=== PATIENT | male | born 1965 | race Caucasian/White ===

== ENCOUNTER 2021-10-11 17:30 | Inpatient (IN) | payer OTHER ==
[2021-10-11 17:43] VITALS: BMI 24.0
[2021-10-11] MEDS ORDERED: LORazepam 2 MG/ML SDV VIAL IVPUSH ONE ×2 (18:53→20:30)
[2021-10-11] MEDS ORDERED: THIAMINE HCL 200 MG/2 ML VIAL IVPB ONE (18:59)
[2021-10-11] MEDS ORDERED: HALOPERIDOL LACTATE 5 MG/ML IV ONE (19:19)
[2021-10-11] MEDS ORDERED: HALOPERIDOL LACTATE 5 MG/ML ONE (19:21)
[2021-10-11 19:25] LABS: BASO % 0.6 % (0-2.0); EOS % 1.6 % (0-4.5); HEMATOCRIT 49.1 % (35.4-49); HEMOGLOBIN 16.4 GM/dL (11.7-16.9); LYMPH % 20.7 % (8-40); MCH 29.8 pg (25.7-33.7); MCHC 33.5 g/dl (32.0-35.9); MEAN CELL VOLUME 89.1 fl (80-96); MEAN PLT VOLUME 8.7 fl (7.5-11.1); MONO % 19.4 % (3.8-10.2); NEUT % 57.7 % (42.8-82.8); PLATELET COUNT 130 10^3/uL (134-434); RBC 5.51 M/mm3 (4.00-5.60); RDW 13.2 % (11.9-15.9); WHITE BLOOD COUNT 6.6 K/mm3 (4.0-10.0)
[2021-10-11 19:45] LABS: CHLORIDE 102 mmol/L (98-107); SODIUM 138 mmol/L (136-145)
[2021-10-11 19:47] LABS: ALBUMIN 4.3 g/dl (3.4-5.0); ANION GAP 9 MMOL/L (8-16); BLOOD UREA NITROGEN 7.3 mg/dL (7-18); CALCIUM 9.8 mg/dL (8.5-10.1); CO2 27 mmol/L (21-32); GLUCOSE,RANDOM 105 mg/dL (74-106); MAGNESIUM 2.2 mg/dL (1.8-2.4)
[2021-10-11 19:50] LABS: CREATININE 0.8 mg/dL (0.55-1.3); SGPT/ALT 73 U/L (13-61)
[2021-10-11 19:52] LABS: BILIRUBIN,TOTAL 1.3 mg/dL (0.2-1)
[2021-10-11 19:53] LABS: ALK PHOS 63 U/L (45-117)
[2021-10-11] MEDS ORDERED: THIAMINE HCL 200 MG/2 ML VIAL ONE (21:40)
[2021-10-12] MEDS ORDERED: LORazepam 2 MG/ML SDV VIAL IVPUSH PRN (00:15)
[2021-10-12 07:20] LABS: EOS % 2.3 % (0-4.5); HEMOGLOBIN 15.7 GM/dL (11.7-16.9); LYMPH % 17.9 % (8-40); MCH 29.9 pg (25.7-33.7); MCHC 33.3 g/dl (32.0-35.9); MEAN CELL VOLUME 89.7 fl (80-96); MEAN PLT VOLUME 8.6 fl (7.5-11.1); NEUT % 58.8 % (42.8-82.8); PLATELET COUNT 114 10^3/uL (134-434); RBC 5.24 M/mm3 (4.00-5.60); RDW 13.4 % (11.9-15.9); WHITE BLOOD COUNT 4.7 K/mm3 (4.0-10.0)
[2021-10-12 07:30] LABS: INR 1.04 (0.83-1.09)
[2021-10-12 07:48] LABS: BLOOD UREA NITROGEN 7.6 mg/dL (7-18)
[2021-10-12 07:49] LABS: BILIRUBIN,TOTAL 1.2 mg/dL (0.2-1); TOT PROT 7.3 g/dl (6.4-8.2)
[2021-10-12 07:51] LABS: CALCIUM 9.6 mg/dL (8.5-10.1); PHOSPHOROUS 3.6 mg/dL (2.5-4.9)
[2021-10-12 07:52] LABS: CREATININE 0.7 mg/dL (0.55-1.3); MAGNESIUM 2.1 mg/dL (1.8-2.4)
[2021-10-12] MEDS ORDERED: THIAMINE HCL 200 MG/2 ML VIAL IVPB SCH (10:00)
[2021-10-12] MEDS ORDERED: LORazepam 1 MG TABLET PO PRN (10:48)
[2021-10-12] MEDS ORDERED: LORazepam 1 MG TABLET PO SCH (11:00)
[2021-10-12] MEDS ORDERED: LORazepam 2 MG TABLET PO SCH (11:00)
[2021-10-12 11:24] LABS: SGOT/AST 42 U/L (15-37)
[2021-10-12] MEDS ORDERED: FOLIC ACID 1 MG TABLET (FP) ONE (11:34)
[2021-10-12] MEDS ORDERED: LORazepam 1 MG TABLET ONE (11:35)
[2021-10-12] MEDS ORDERED: MULTIVITAMINS (DAILY MVI) TABLET (FP) ONE (11:35)
[2021-10-12] MEDS ORDERED: ENOXAPARIN NA (PORCINE) 40 MG/0.4 ML DISP.SYRIN SQ ONE (11:36)
[2021-10-12] MEDS: THIAMINE HCL 200 MG/2 ML VIAL IVPB SCH ×3 (11:40→21:37)
[2021-10-12] MEDS: FOLIC ACID 1 MG TABLET (FP) PO SCH (11:40)
[2021-10-12] MEDS: ENOXAPARIN NA (PORCINE) 40 MG/0.4 ML DISP.SYRIN SQ SCH (11:40)
[2021-10-12] MEDS: MULTIVITAMINS (DAILY MVI) TABLET (FP) PO SCH (11:41)
[2021-10-12] MEDS ORDERED: LORazepam 2 MG/ML SDV VIAL IVPUSH ONE (13:15)
[2021-10-12] MEDS ORDERED: diazePAM CARPU-JECT 10 MG/2 ML DISP.SYRIN IVPUSH ONE (15:00)
[2021-10-12] MEDS ORDERED: diazePAM CARPU-JECT 10 MG/2 ML DISP.SYRIN ONE (15:05)
[2021-10-12] MEDS: LORazepam 2 MG/ML SDV VIAL IVPUSH SCH ×2 (17:00→23:47)
[2021-10-12] MEDS: LORazepam 2 MG/ML SDV VIAL IVPUSH PRN (18:16)
[2021-10-12] MEDS: LACTULOSE 20 GM/30 ML UDC (FOR ORAL USE ONLY) PO SCH (21:38)
[2021-10-13] MEDS: THIAMINE HCL 200 MG/2 ML VIAL IVPB SCH ×3 (05:45→22:26)
[2021-10-13] MEDS: LACTULOSE 20 GM/30 ML UDC (FOR ORAL USE ONLY) PO SCH ×4 (05:45→22:26)
[2021-10-13] MEDS: LORazepam 2 MG/ML SDV VIAL IVPUSH SCH ×4 (05:45→22:55)
[2021-10-13] MEDS: ENOXAPARIN NA (PORCINE) 40 MG/0.4 ML DISP.SYRIN SQ SCH (09:54)
[2021-10-13] MEDS: FOLIC ACID 1 MG TABLET (FP) PO SCH (09:54)
[2021-10-13] MEDS: MULTIVITAMINS (DAILY MVI) TABLET (FP) PO SCH (09:54)
[2021-10-13 10:15] LABS: HEMATOCRIT 49.6 % (35.4-49); HEMOGLOBIN 16.7 GM/dL (11.7-16.9); MCH 30.5 pg (25.7-33.7); MCHC 33.8 g/dl (32.0-35.9); MEAN CELL VOLUME 90.5 fl (80-96); MEAN PLT VOLUME 8.5 fl (7.5-11.1); PLATELET COUNT 132 10^3/uL (134-434); RBC 5.48 M/mm3 (4.00-5.60); RDW 13.4 % (11.9-15.9); WHITE BLOOD COUNT 7.2 K/mm3 (4.0-10.0)
[2021-10-13 10:39] LABS: PHOSPHOROUS 3.6 mg/dL (2.5-4.9)
[2021-10-13 10:40] LABS: BILIRUBIN,TOTAL 1.3 mg/dL (0.2-1); BLOOD UREA NITROGEN 11.4 mg/dL (7-18); CALCIUM 10.3 mg/dL (8.5-10.1); CREATININE 0.8 mg/dL (0.55-1.3)
[2021-10-13 10:41] LABS: MAGNESIUM 2.3 mg/dL (1.8-2.4); TOT PROT 7.6 g/dl (6.4-8.2)
[2021-10-13] MEDS: LORazepam 2 MG/ML SDV VIAL IVPUSH PRN (21:08)
[2021-10-13] MEDS ORDERED: ACETAMINOPHEN 1000 MG/100 ML BAG IVPB ONE (21:46)
[2021-10-14] MEDS ORDERED: LORazepam 1 MG TABLET PO SCH (05:00)
[2021-10-14] MEDS: LORazepam 2 MG/ML SDV VIAL IVPUSH SCH ×3 (05:05→23:35)
[2021-10-14] MEDS: LACTULOSE 20 GM/30 ML UDC (FOR ORAL USE ONLY) PO SCH ×3 (06:04→21:15)
[2021-10-14] MEDS: THIAMINE HCL 200 MG/2 ML VIAL IVPB SCH ×3 (06:05→21:16)
[2021-10-14] MEDS: MULTIVITAMINS (DAILY MVI) TABLET (FP) PO SCH (09:52)
[2021-10-14] MEDS: FOLIC ACID 1 MG TABLET (FP) PO SCH (09:52)
[2021-10-14] MEDS: ENOXAPARIN NA (PORCINE) 40 MG/0.4 ML DISP.SYRIN SQ SCH (09:52)
[2021-10-14 10:32] LABS: HEMATOCRIT 48.3 % (35.4-49); HEMOGLOBIN 16.2 GM/dL (11.7-16.9); MCH 30.4 pg (25.7-33.7); MCHC 33.4 g/dl (32.0-35.9); MEAN PLT VOLUME 8.9 fl (7.5-11.1); PLATELET COUNT 125 10^3/uL (134-434); RBC 5.31 M/mm3 (4.00-5.60); RDW 13.2 % (11.9-15.9); WHITE BLOOD COUNT 8.1 K/mm3 (4.0-10.0)
[2021-10-14 11:27] LABS: CALCIUM 9.7 mg/dL (8.5-10.1)
[2021-10-14 11:28] LABS: ALBUMIN 3.7 g/dl (3.4-5.0); BLOOD UREA NITROGEN 10.8 mg/dL (7-18); MAGNESIUM 2.4 mg/dL (1.8-2.4)
[2021-10-14 11:29] LABS: TOT PROT 7.2 g/dl (6.4-8.2)
[2021-10-14 11:30] LABS: PHOSPHOROUS 3.5 mg/dL (2.5-4.9)
[2021-10-14 11:33] LABS: CREATININE 0.8 mg/dL (0.55-1.3)
[2021-10-14 11:34] LABS: BILIRUBIN,TOTAL 1.3 mg/dL (0.2-1)
[2021-10-14] MEDS: LORazepam 2 MG/ML SDV VIAL IVPUSH PRN ×2 (16:54→21:15)
[2021-10-15] MEDS ORDERED: LORazepam 0.5 MG TABLET PO PRN
[2021-10-15] MEDS ORDERED: LORazepam 0.5 MG TABLET PO SCH (05:00)
[2021-10-15] MEDS: LORazepam 2 MG/ML SDV VIAL IVPUSH SCH ×4 (05:02→20:39)
[2021-10-15] MEDS: THIAMINE HCL 200 MG/2 ML VIAL IVPB SCH ×3 (06:03→22:35)
[2021-10-15] MEDS: LACTULOSE 20 GM/30 ML UDC (FOR ORAL USE ONLY) PO SCH ×3 (06:03→22:35)
[2021-10-15] MEDS: MULTIVITAMINS (DAILY MVI) TABLET (FP) PO SCH (10:07)
[2021-10-15] MEDS: ENOXAPARIN NA (PORCINE) 40 MG/0.4 ML DISP.SYRIN SQ SCH (10:07)
[2021-10-15] MEDS: FOLIC ACID 1 MG TABLET (FP) PO SCH (10:07)
[2021-10-16] MEDS: LORazepam 2 MG/ML SDV VIAL IVPUSH SCH ×2 (02:42→10:39)
[2021-10-16] MEDS ORDERED: LORazepam 0.5 MG TABLET PO ONE (05:00)
[2021-10-16] MEDS: LACTULOSE 20 GM/30 ML UDC (FOR ORAL USE ONLY) PO SCH ×3 (06:26→22:13)
[2021-10-16] MEDS: THIAMINE HCL 200 MG/2 ML VIAL IVPB SCH ×3 (06:27→22:18)
[2021-10-16 09:33] LABS: HEMATOCRIT 47.5 % (35.4-49); HEMOGLOBIN 15.6 GM/dL (11.7-16.9); MCH 30.1 pg (25.7-33.7); MCHC 32.8 g/dl (32.0-35.9); MEAN CELL VOLUME 91.6 fl (80-96); MEAN PLT VOLUME 8.9 fl (7.5-11.1); PLATELET COUNT 148 10^3/uL (134-434); RBC 5.18 M/mm3 (4.00-5.60); RDW 12.9 % (11.9-15.9); WHITE BLOOD COUNT 5.6 K/mm3 (4.0-10.0)
[2021-10-16 10:01] LABS: ALBUMIN 3.5 g/dl (3.4-5.0); BLOOD UREA NITROGEN 11.4 mg/dL (7-18); CALCIUM 9.8 mg/dL (8.5-10.1)
[2021-10-16 10:04] LABS: CREATININE 0.8 mg/dL (0.55-1.3)
[2021-10-16 10:05] LABS: BILIRUBIN,TOTAL 0.9 mg/dL (0.2-1)
[2021-10-16 10:06] LABS: TOT PROT 6.9 g/dl (6.4-8.2)
[2021-10-16 10:13] LABS: ANISOCYTOSIS 0; MACROCYTOSIS 0
[2021-10-16] MEDS: ENOXAPARIN NA (PORCINE) 40 MG/0.4 ML DISP.SYRIN SQ SCH (10:40)
[2021-10-16] MEDS: MULTIVITAMINS (DAILY MVI) TABLET (FP) PO SCH (10:40)
[2021-10-16] MEDS: FOLIC ACID 1 MG TABLET (FP) PO SCH (10:40)
[2021-10-16] MEDS ORDERED: LORazepam 2 MG/ML SDV VIAL IVPUSH ONE (15:00)
[2021-10-17] MEDS: THIAMINE HCL 200 MG/2 ML VIAL IVPB SCH ×3 (05:10→22:44)
[2021-10-17] MEDS: LACTULOSE 20 GM/30 ML UDC (FOR ORAL USE ONLY) PO SCH ×3 (05:10→22:35)
[2021-10-17 08:48] LABS: BASO % 0.7 % (0-2.0); EOS % 1.4 % (0-4.5); HEMATOCRIT 47.9 % (35.4-49); HEMOGLOBIN 16.1 GM/dL (11.7-16.9); LYMPH % 13.1 % (8-40); MCH 30.4 pg (25.7-33.7); MCHC 33.6 g/dl (32.0-35.9); MEAN CELL VOLUME 90.6 fl (80-96); MEAN PLT VOLUME 8.6 fl (7.5-11.1); NEUT % 63.8 % (42.8-82.8); PLATELET COUNT 182 10^3/uL (134-434); RBC 5.29 M/mm3 (4.00-5.60); RDW 12.8 % (11.9-15.9); WHITE BLOOD COUNT 6.8 K/mm3 (4.0-10.0)
[2021-10-17 09:12] LABS: ALBUMIN 3.7 g/dl (3.4-5.0); BLOOD UREA NITROGEN 11.9 mg/dL (7-18); CALCIUM 10.1 mg/dL (8.5-10.1); MAGNESIUM 2.3 mg/dL (1.8-2.4)
[2021-10-17 09:15] LABS: CREATININE 0.8 mg/dL (0.55-1.3)
[2021-10-17 09:16] LABS: TOT PROT 7.5 g/dl (6.4-8.2)
[2021-10-17 09:17] LABS: BILIRUBIN,TOTAL 0.7 mg/dL (0.2-1)
[2021-10-17 09:34] LABS: ANISOCYTOSIS 0; HELMET CELLS 0; HOWELL-JOLLY BODIES 0; MACROCYTOSIS 0; OVALOCYTE 0; ROULEAU 0; SICKELED CELLS 0; TARGET CELLS 0; TEAR DROP CELLS 0; TOXIC GRANULATION 0
[2021-10-17] MEDS: ENOXAPARIN NA (PORCINE) 40 MG/0.4 ML DISP.SYRIN SQ SCH (09:41)
[2021-10-17] MEDS: MULTIVITAMINS (DAILY MVI) TABLET (FP) PO SCH (09:41)
[2021-10-17] MEDS: FOLIC ACID 1 MG TABLET (FP) PO SCH (09:41)
[2021-10-17] MEDS: hydrOXYzine PAMOATE 25 MG CAPSULE (FP) PO PRN (09:41)
[2021-10-17] MEDS ORDERED: LORazepam 2 MG/ML SDV VIAL IM ONE (17:09)
[2021-10-17] MEDS ORDERED: THIAMINE HCL 200 MG/2 ML VIAL IM ONE (21:23)
[2021-10-18] MEDS ORDERED: THIAMINE HCL 200 MG/2 ML VIAL IM ONE (06:00)
[2021-10-18] MEDS: LACTULOSE 20 GM/30 ML UDC (FOR ORAL USE ONLY) PO SCH ×3 (06:34→22:08)
[2021-10-18] MEDS: THIAMINE HCL 200 MG/2 ML VIAL IVPB SCH (06:35)
[2021-10-18 10:21] LABS: HEMATOCRIT 47.8 % (35.4-49); HEMOGLOBIN 15.7 GM/dL (11.7-16.9); MCH 29.9 pg (25.7-33.7); MCHC 32.9 g/dl (32.0-35.9); MEAN CELL VOLUME 91.1 fl (80-96); MEAN PLT VOLUME 8.5 fl (7.5-11.1); PLATELET COUNT 192 10^3/uL (134-434); RBC 5.25 M/mm3 (4.00-5.60); RDW 12.7 % (11.9-15.9); WHITE BLOOD COUNT 8.1 K/mm3 (4.0-10.0)
[2021-10-18] MEDS: MULTIVITAMINS (DAILY MVI) TABLET (FP) PO SCH (10:29)
[2021-10-18] MEDS: ENOXAPARIN NA (PORCINE) 40 MG/0.4 ML DISP.SYRIN SQ SCH (10:29)
[2021-10-18] MEDS: FOLIC ACID 1 MG TABLET (FP) PO SCH (10:29)
[2021-10-18 10:45] LABS: ALBUMIN 3.6 g/dl (3.4-5.0); BLOOD UREA NITROGEN 9.6 mg/dL (7-18); MAGNESIUM 2.3 mg/dL (1.8-2.4)
[2021-10-18 10:48] LABS: BILIRUBIN,TOTAL 0.7 mg/dL (0.2-1); TOT PROT 7.2 g/dl (6.4-8.2)
[2021-10-18] MEDS: LORazepam 1 MG TABLET PO PRN ×2 (12:53→22:05)
[2021-10-18] MEDS: hydrOXYzine PAMOATE 25 MG CAPSULE (FP) PO PRN (13:47)
[2021-10-18] MEDS: THIAMINE HCL 200 MG/2 ML VIAL IM SCH ×2 (13:56→22:22)
[2021-10-18] MEDS ORDERED: ACETAMINOPHEN 1000 MG/100 ML BAG IVPB ONE (20:41)
[2021-10-18] MEDS: MELATONIN 5 MG TABLETS PO PRN (22:22)
[2021-10-19] MEDS: LACTULOSE 20 GM/30 ML UDC (FOR ORAL USE ONLY) PO SCH ×3 (06:23→22:20)
[2021-10-19] MEDS: THIAMINE HCL 200 MG/2 ML VIAL IM SCH ×3 (06:23→22:19)
[2021-10-19 09:39] LABS: BASO % 0.7 % (0-2.0); EOS % 0.1 % (0-4.5); HEMATOCRIT 46.9 % (35.4-49); HEMOGLOBIN 15.9 GM/dL (11.7-16.9); LYMPH % 7.1 % (8-40); MCH 30.5 pg (25.7-33.7); MCHC 33.9 g/dl (32.0-35.9); MEAN CELL VOLUME 90.1 fl (80-96); MEAN PLT VOLUME 8.8 fl (7.5-11.1); MONO % 10.8 % (3.8-10.2); NEUT % 81.3 % (42.8-82.8); PLATELET COUNT 209 10^3/uL (134-434); RBC 5.21 M/mm3 (4.00-5.60); RDW 12.4 % (11.9-15.9); WHITE BLOOD COUNT 8.9 K/mm3 (4.0-10.0)
[2021-10-19 10:01] LABS: BLOOD UREA NITROGEN 19.4 mg/dL (7-18); CALCIUM 10.2 mg/dL (8.5-10.1); MAGNESIUM 2.2 mg/dL (1.8-2.4)
[2021-10-19 10:05] LABS: CREATININE 1.1 mg/dL (0.55-1.3); PHOSPHOROUS 4.4 mg/dL (2.5-4.9)
[2021-10-19] MEDS: ENOXAPARIN NA (PORCINE) 40 MG/0.4 ML DISP.SYRIN SQ SCH (11:17)
[2021-10-19] MEDS: FOLIC ACID 1 MG TABLET (FP) PO SCH (11:17)
[2021-10-19] MEDS: MULTIVITAMINS (DAILY MVI) TABLET (FP) PO SCH (11:18)
[2021-10-19] MEDS: LORazepam 1 MG TABLET PO PRN (17:39)
[2021-10-19] MEDS: MELATONIN 5 MG TABLETS PO PRN (22:19)
[2021-10-19] MEDS: hydrOXYzine PAMOATE 25 MG CAPSULE (FP) PO PRN (22:20)
[2021-10-19] MEDS: ACETAMINOPHEN 325 MG TABLET (FP) PO PRN (22:43)
[2021-10-20] MEDS: THIAMINE HCL 200 MG/2 ML VIAL IM SCH (05:50)
[2021-10-20] MEDS: LACTULOSE 20 GM/30 ML UDC (FOR ORAL USE ONLY) PO SCH ×2 (05:50→14:55)
[2021-10-20] MEDS: ACETAMINOPHEN 325 MG TABLET (FP) PO PRN (08:18)
[2021-10-20 09:13] LABS: BASO % 0.2 % (0-2.0); EOS % 1.1 % (0-4.5); HEMATOCRIT 46.4 % (35.4-49); HEMOGLOBIN 15.7 GM/dL (11.7-16.9); LYMPH % 6.6 % (8-40); MCH 30.3 pg (25.7-33.7); MCHC 33.9 g/dl (32.0-35.9); MEAN CELL VOLUME 89.3 fl (80-96); MEAN PLT VOLUME 8.9 fl (7.5-11.1); NEUT % 83.1 % (42.8-82.8); PLATELET COUNT 182 10^3/uL (134-434); RDW 12.5 % (11.9-15.9); WHITE BLOOD COUNT 6.6 K/mm3 (4.0-10.0)
[2021-10-20 09:31] LABS: ALBUMIN 3.4 g/dl (3.4-5.0); MAGNESIUM 2.2 mg/dL (1.8-2.4)
[2021-10-20 09:33] LABS: BLOOD UREA NITROGEN 19.4 mg/dL (7-18)
[2021-10-20 09:34] LABS: CREATININE 1.2 mg/dL (0.55-1.3); PHOSPHOROUS 3.2 mg/dL (2.5-4.9)
[2021-10-20 09:36] LABS: BILIRUBIN,TOTAL 0.4 mg/dL (0.2-1); TOT PROT 6.8 g/dl (6.4-8.2)
[2021-10-20] MEDS: ENOXAPARIN NA (PORCINE) 40 MG/0.4 ML DISP.SYRIN SQ SCH (11:42)
[2021-10-20] MEDS: FOLIC ACID 1 MG TABLET (FP) PO SCH (11:45)
[2021-10-20] MEDS: THIAMINE HCL 100 MG TABLET (FP) PO SCH (11:45)
[2021-10-20] MEDS: MULTIVITAMINS (DAILY MVI) TABLET (FP) PO SCH (11:46)
[2021-10-20 18:40] LABS: EPI CELLS 4 /uL (0-25.1); HYALINE CASTS 14 /uL (0-3.1); URINE APPEARANCE CLOUDY; URINE BACTERIA >9,000 /uL (0-1359); URINE BILIRUBIN NEGATIVE (NEGATIVE); URINE COLOR YELLOW; URINE GLUCOSE (UA) NEGATIVE (NEGATIVE); URINE KETONE TRACE (NEGATIVE); URINE LEUK ESTERASE 2+ (NEGATIVE); URINE NITRITE POSITIVE (NEGATIVE); URINE PROTEIN 1+ (NEGATIVE); URINE RBC 955 /uL (0-23.9); URINE UROBILINOGEN 0.2 mg/dL (0.2-1.0); URINE WBC 576 /uL (0-25.8)
[2021-10-21] MEDS: LORazepam 1 MG TABLET PO PRN ×2 (09:13→21:34)
[2021-10-21 09:16] LABS: HEMATOCRIT 45.6 % (35.4-49); HEMOGLOBIN 15.5 GM/dL (11.7-16.9); MCH 30.4 pg (25.7-33.7); MCHC 34.1 g/dl (32.0-35.9); MEAN PLT VOLUME 9.2 fl (7.5-11.1); PLATELET COUNT 191 10^3/uL (134-434); RBC 5.12 M/mm3 (4.00-5.60); RDW 12.4 % (11.9-15.9)
[2021-10-21 09:21] LABS: CALCIUM 9.6 mg/dL (8.5-10.1)
[2021-10-21 09:22] LABS: ALBUMIN 3.5 g/dl (3.4-5.0); BLOOD UREA NITROGEN 15.2 mg/dL (7-18); MAGNESIUM 2.3 mg/dL (1.8-2.4)
[2021-10-21 09:25] LABS: CREATININE 0.8 mg/dL (0.55-1.3); PHOSPHOROUS 2.8 mg/dL (2.5-4.9)
[2021-10-21 09:26] LABS: BILIRUBIN,TOTAL 0.4 mg/dL (0.2-1); TOT PROT 6.9 g/dl (6.4-8.2)
[2021-10-21] MEDS: MULTIVITAMINS (DAILY MVI) TABLET (FP) PO SCH (10:06)
[2021-10-21] MEDS: FOLIC ACID 1 MG TABLET (FP) PO SCH (10:06)
[2021-10-21] MEDS: LACTULOSE 20 GM/30 ML UDC (FOR ORAL USE ONLY) PO SCH (10:07)
[2021-10-21] MEDS: ENOXAPARIN NA (PORCINE) 40 MG/0.4 ML DISP.SYRIN SQ SCH (10:07)
[2021-10-21] MEDS: THIAMINE HCL 100 MG TABLET (FP) PO SCH (10:07)
[2021-10-21 11:38] LABS: ANISOCYTOSIS 0; HELMET CELLS 0; HOWELL-JOLLY BODIES 0; MACROCYTOSIS 0; OVALOCYTE 0; ROULEAU 0; SICKELED CELLS 0; TARGET CELLS 0; TEAR DROP CELLS 0; TOXIC GRANULATION 0
[2021-10-21] MEDS ORDERED: cefTRIAXone SODIUM 1 GM VIAL ONE (16:27)
[2021-10-21] MEDS ORDERED: DEXTROSE 5%-WATER - 50 ML IVPB ONE (16:27)
[2021-10-21] MEDS: CEFTRIAXONE 1 GM in DEXTROSE 5%-WATER - 50 ML IVPB SCH (16:28)
[2021-10-21] MEDS: MELATONIN 5 MG TABLETS PO PRN (21:34)
[2021-10-22] MEDS ORDERED: cefTRIAXone SODIUM 1 GM VIAL ONE (10:08)
[2021-10-22] MEDS ORDERED: DEXTROSE 5%-WATER - 50 ML IVPB ONE (10:08)
[2021-10-22] MEDS: THIAMINE HCL 100 MG TABLET (FP) PO SCH (10:14)
[2021-10-22] MEDS: LACTULOSE 20 GM/30 ML UDC (FOR ORAL USE ONLY) PO SCH (10:14)
[2021-10-22] MEDS: ENOXAPARIN NA (PORCINE) 40 MG/0.4 ML DISP.SYRIN SQ SCH (10:14)
[2021-10-22] MEDS: FOLIC ACID 1 MG TABLET (FP) PO SCH (10:14)
[2021-10-22] MEDS: MULTIVITAMINS (DAILY MVI) TABLET (FP) PO SCH (10:14)
[2021-10-22] MEDS: CEFTRIAXONE 1 GM in DEXTROSE 5%-WATER - 50 ML IVPB SCH (10:14)
[2021-10-22] MEDS: LORazepam 1 MG TABLET PO PRN ×2 (13:33→19:07)
[2021-10-22] MEDS: DONEPEZIL HCL 5 MG TABLET (FP) PO SCH (21:16)
[2021-10-23 08:14] VITALS: RESP 20
[2021-10-23] MEDS ORDERED: cefTRIAXone SODIUM 1 GM VIAL ONE (08:24)
[2021-10-23] MEDS ORDERED: DEXTROSE 5%-WATER - 50 ML IVPB ONE (08:25)
[2021-10-23] MEDS: THIAMINE HCL 100 MG TABLET (FP) PO SCH (10:30)
[2021-10-23] MEDS: ENOXAPARIN NA (PORCINE) 40 MG/0.4 ML DISP.SYRIN SQ SCH (10:30)
[2021-10-23] MEDS: FOLIC ACID 1 MG TABLET (FP) PO SCH (10:30)
[2021-10-23] MEDS: LACTULOSE 20 GM/30 ML UDC (FOR ORAL USE ONLY) PO SCH (10:30)
[2021-10-23] MEDS: MULTIVITAMINS (DAILY MVI) TABLET (FP) PO SCH (10:30)
[2021-10-23] MEDS: DONEPEZIL HCL 5 MG TABLET (FP) PO SCH (10:30)
[2021-10-23] MEDS: CEFTRIAXONE 1 GM in DEXTROSE 5%-WATER - 50 ML IVPB SCH (10:31)
[2021-10-23 11:15] LABS: BLOOD UREA NITROGEN 11.7 mg/dL (7-18); CALCIUM 9.6 mg/dL (8.5-10.1)
[2021-10-23 11:16] LABS: ALBUMIN 3.4 g/dl (3.4-5.0); MAGNESIUM 2.5 mg/dL (1.8-2.4)
[2021-10-23 11:18] LABS: CREATININE 0.9 mg/dL (0.55-1.3); PHOSPHOROUS 2.9 mg/dL (2.5-4.9)
[2021-10-23 11:20] LABS: BILIRUBIN,TOTAL 0.5 mg/dL (0.2-1); TOT PROT 7.2 g/dl (6.4-8.2)
[2021-10-23 12:19] LABS: BASO % 0.9 % (0-2.0); EOS % 2.8 % (0-4.5); HEMATOCRIT 50.9 % (35.4-49); HEMOGLOBIN 16.7 GM/dL (11.7-16.9); MCH 29.6 pg (25.7-33.7); MCHC 32.8 g/dl (32.0-35.9); MEAN CELL VOLUME 90.4 fl (80-96); MEAN PLT VOLUME 9.6 fl (7.5-11.1); MONO % 14.9 % (3.8-10.2); NEUT % 61.4 % (42.8-82.8); PLATELET COUNT 247 10^3/uL (134-434); RBC 5.63 M/mm3 (4.00-5.60); RDW 12.9 % (11.9-15.9); WHITE BLOOD COUNT 7.6 K/mm3 (4.0-10.0)
[2021-10-23] MEDS: hydrOXYzine PAMOATE 25 MG CAPSULE (FP) PO PRN (16:01)
[2021-10-23] MEDS: ACETAMINOPHEN 325 MG TABLET (FP) PO PRN (18:48)
[2021-10-23] MEDS ORDERED: LORazepam 1 MG TABLET PO ONE (22:13)
[2021-10-24] MEDS: MELATONIN 5 MG TABLETS PO PRN (03:18)
[2021-10-24] MEDS: hydrOXYzine PAMOATE 25 MG CAPSULE (FP) PO PRN (03:19)
[2021-10-24 09:15] LABS: BASO % 1.1 % (0-2.0); EOS % 3.5 % (0-4.5); HEMOGLOBIN 14.5 GM/dL (11.7-16.9); MCH 29.9 pg (25.7-33.7); MCHC 33.9 g/dl (32.0-35.9); MEAN CELL VOLUME 88.4 fl (80-96); MEAN PLT VOLUME 8.4 fl (7.5-11.1); MONO % 14.5 % (3.8-10.2); NEUT % 57.9 % (42.8-82.8); PLATELET COUNT 251 10^3/uL (134-434); RBC 4.86 M/mm3 (4.00-5.60); RDW 12.3 % (11.9-15.9); WHITE BLOOD COUNT 6.5 K/mm3 (4.0-10.0)
[2021-10-24 09:19] LABS: BILIRUBIN,TOTAL 0.5 mg/dL (0.2-1); TOT PROT 6.3 g/dl (6.4-8.2)
[2021-10-24 09:20] LABS: BLOOD UREA NITROGEN 10.9 mg/dL (7-18); CALCIUM 9.5 mg/dL (8.5-10.1)
[2021-10-24 09:21] LABS: CREATININE 0.9 mg/dL (0.55-1.3); MAGNESIUM 2.3 mg/dL (1.8-2.4)
[2021-10-24] MEDS ORDERED: cefTRIAXone SODIUM 1 GM VIAL ONE (10:41)
[2021-10-24] MEDS ORDERED: DEXTROSE 5%-WATER - 50 ML IVPB ONE (10:41)
[2021-10-24] MEDS: MULTIVITAMINS (DAILY MVI) TABLET (FP) PO SCH (10:47)
[2021-10-24] MEDS: THIAMINE HCL 100 MG TABLET (FP) PO SCH (10:47)
[2021-10-24] MEDS: FOLIC ACID 1 MG TABLET (FP) PO SCH (10:47)
[2021-10-24] MEDS: CEFTRIAXONE 1 GM in DEXTROSE 5%-WATER - 50 ML IVPB SCH ×2 (10:47→11:23)
[2021-10-24] MEDS: LACTULOSE 20 GM/30 ML UDC (FOR ORAL USE ONLY) PO SCH (10:47)
[2021-10-24] MEDS: DONEPEZIL HCL 5 MG TABLET (FP) PO SCH (10:47)
[2021-10-24] MEDS: ENOXAPARIN NA (PORCINE) 40 MG/0.4 ML DISP.SYRIN SQ SCH (10:47)
[2021-10-24 14:28] VITALS: BP 108/68; PULSE 71; TEMP 98.5
== END 2021-10-24 14:35 | disposition other institution (70) | DRG 642 ==
LOC: JER 17:30 → JERBED 22:14 → J8W 10-12 17:33
PROVIDERS: ADMIT Hospitalist
PROC: HZ2ZZZZ Detoxification Services for Substance Abuse Treatment (ICD-10-PCS; principal; 2021-10-12)
DX: E72.20 Disorder of urea cycle metabolism, unspecified (principal); F10.239 Alcohol dependence with withdrawal, unspecified; E51.2 Wernicke's encephalopathy; F10.27 Alcohol dependence with alcohol-induced persisting dementia; N39.0 Urinary tract infection, site not specified; I10 Essential (primary) hypertension; E78.5 Hyperlipidemia, unspecified; E80.6 Other disorders of bilirubin metabolism; M54.9 Dorsalgia, unspecified; K70.10 Alcoholic hepatitis without ascites; F19.10 Other psychoactive substance abuse, uncomplicated; R74.01 Elevation of levels of liver transaminase levels
CPT/HCPCS: 36415; 70450-TC; 71045-TC-FY; 76705-TC; 80048; 80053; 80307; 81003; 82140; 82607; 82746; 83735; 84100; 84443; 85025; 85027; 85610; 87040; 87086; 93005; 93010; 97116-GP; 97161-GP; 99285-25; C9803-CS; U0003; U0005